=== PATIENT | male | born 1945 | race Caucasian/White ===

== ENCOUNTER 2018-01-31 07:20 | Outpatient (CLI) | payer OTHER | END 2018-01-31 07:24 | disposition home or self-care (01) | LOC: RAD 07:20 | DX: I51.5 Myocardial degeneration (principal); Z95.0 Presence of cardiac pacemaker; J44.9 Chronic obstructive pulmonary disease, unspecified; I11.9 Hypertensive heart disease without heart failure; I67.89 Other cerebrovascular disease; N40.0 Benign prostatic hyperplasia without lower urinary tract symptoms; E78.4 Other hyperlipidemia; Z12.11 Encounter for screening for malignant neoplasm of colon ==

== ENCOUNTER → 2018-03-28 06:35 | Outpatient (CLI) | payer OTHER | END | disposition home or self-care (01) | LOC: LAB 06:35 | DX: Z95.0 Presence of cardiac pacemaker (principal); E78.2 Mixed hyperlipidemia; I11.9 Hypertensive heart disease without heart failure; I65.29 Occlusion and stenosis of unspecified carotid artery ==

== ENCOUNTER 2019-02-16 07:25 | Outpatient (CLI) | payer OTHER | END 2019-02-16 07:26 | disposition home or self-care (01) | LOC: NUCLEAR 07:25 | DX: I73.9 Peripheral vascular disease, unspecified (principal) ==

== ENCOUNTER 2019-02-20 07:42 | Outpatient (CLI) | payer OTHER | END 2019-02-20 07:43 | disposition home or self-care (01) | LOC: NUCLEAR 07:42 | DX: I87.2 Venous insufficiency (chronic) (peripheral) (principal) ==

== ENCOUNTER 2019-06-18 06:46 | Outpatient (CLI) | payer OTHER | END 2019-06-18 06:52 | disposition home or self-care (01) | LOC: LAB 06:46 | DX: I11.9 Hypertensive heart disease without heart failure (principal); E78.2 Mixed hyperlipidemia; I63.89 Other cerebral infarction; I63.30 Cerebral infarction due to thrombosis of unspecified cerebral artery; I87.2 Venous insufficiency (chronic) (peripheral); Z95.0 Presence of cardiac pacemaker ==

== ENCOUNTER 2019-08-21 08:16 | Outpatient (CLI) | payer OTHER | END 2019-08-21 08:27 | disposition home or self-care (01) | LOC: LAB 08:16 | DX: R73.02 Impaired glucose tolerance (oral) (principal); E78.00 Pure hypercholesterolemia, unspecified; I10 Essential (primary) hypertension; E03.8 Other specified hypothyroidism; N40.0 Benign prostatic hyperplasia without lower urinary tract symptoms ==

== ENCOUNTER 2019-08-22 07:40 | Outpatient (CLI) | payer OTHER | END 2019-08-22 12:46 | disposition home or self-care (01) | LOC: SONOGRAMA 07:40 | DX: R31.29 Other microscopic hematuria (principal) ==

== ENCOUNTER → 2019-12-11 07:25 | Outpatient (CLI) | payer OTHER | END | disposition home or self-care (01) | LOC: LAB 07:25 | DX: Z95.0 Presence of cardiac pacemaker (principal); I11.9 Hypertensive heart disease without heart failure; I63.89 Other cerebral infarction; I73.89 Other specified peripheral vascular diseases ==

== ENCOUNTER 2019-12-24 07:26 | Outpatient (CLI) | payer OTHER | END 2019-12-24 07:32 | disposition home or self-care (01) | LOC: LAB 07:26 | PROVIDERS: ATTEND Internal Medicine | DX: I10 Essential (primary) hypertension (principal); E78.49 Other hyperlipidemia; D64.89 Other specified anemias ==

== ENCOUNTER 2020-03-24 07:58 | Outpatient (CLI) | payer OTHER | END 2020-03-24 15:00 | disposition home or self-care (01) | LOC: LAB 07:58 | PROVIDERS: ATTEND Internal Medicine | DX: D64.89 Other specified anemias (principal); R73.02 Impaired glucose tolerance (oral); E78.49 Other hyperlipidemia; I10 Essential (primary) hypertension ==

== ENCOUNTER 2020-04-21 07:37 | Outpatient (CLI) | payer OTHER | END 2020-04-21 07:53 | disposition home or self-care (01) | LOC: NUCLEAR 07:37 | PROVIDERS: ATTEND Internal Medicine | DX: I87.2 Venous insufficiency (chronic) (peripheral) (principal); M79.604 Pain in right leg ==

== ENCOUNTER 2020-06-27 07:42 | Outpatient (CLI) | payer OTHER | END 2020-06-27 07:56 | disposition home or self-care (01) | LOC: LAB 07:42 | PROVIDERS: ATTEND Internal Medicine | DX: D64.89 Other specified anemias (principal); I10 Essential (primary) hypertension; E78.49 Other hyperlipidemia; J44.9 Chronic obstructive pulmonary disease, unspecified; R73.02 Impaired glucose tolerance (oral) ==

== ENCOUNTER 2020-09-03 07:34 | Outpatient (CLI) | payer OTHER | END 2020-09-03 07:42 | disposition home or self-care (01) | LOC: LAB 07:34 | DX: D68.8 Other specified coagulation defects (principal); E78.49 Other hyperlipidemia ==

== ENCOUNTER → 2021-04-15 08:23 | Outpatient (CLI) | payer OTHER | END | disposition home or self-care (01) | LOC: LAB 08:23 | PROVIDERS: ATTEND Internal Medicine | DX: D64.89 Other specified anemias (principal); I10 Essential (primary) hypertension; E78.49 Other hyperlipidemia; R73.02 Impaired glucose tolerance (oral) ==

== ENCOUNTER 2021-04-21 08:01 | Outpatient (CLI) | payer OTHER | END 2021-04-21 08:13 | disposition home or self-care (01) | LOC: RAD 08:01 | PROVIDERS: ATTEND Internal Medicine | DX: M25.551 Pain in right hip (principal) ==

== ENCOUNTER 2021-05-16 03:15 | Emergency (ER) | payer OTHER ==
[~2021-05-16] VITALS: Ht 182.9 cm; Wt 105.2 kg
[2021-05-16] MEDS ORDERED: NORVASC5 MG (04:07)
[2021-05-16] MEDS ORDERED: PLAVIX75 MG (04:07)
== END 2021-05-16 13:58 | disposition home or self-care (01) ==
LOC: ER 03:15
DX: R10.31 Right lower quadrant pain (principal); R42 Dizziness and giddiness

== ENCOUNTER 2021-05-20 07:24 | Outpatient (CLI) | payer OTHER ==
[~2021-05-20 07:24] MED LIST: NORVASC5 MG; PLAVIX75 MG
== END 2021-05-20 07:29 | disposition home or self-care (01) ==
LOC: TOM 07:24
PROVIDERS: ATTEND Internal Medicine
DX: M25.551 Pain in right hip (principal)

== ENCOUNTER 2021-06-11 12:33 | Outpatient (CLI) | payer OTHER | END 2021-06-11 12:34 | disposition home or self-care (01) | LOC: NUCLEAR 12:33 | PROVIDERS: ATTEND Orthopaedic Surgery | DX: M81.0 Age-related osteoporosis without current pathological fracture (principal) ==

== ENCOUNTER 2021-07-13 07:57 | Outpatient (CLI) | payer OTHER | END 2021-07-13 07:58 | disposition home or self-care (01) | LOC: LAB 07:57 | PROVIDERS: ATTEND Orthopaedic Surgery | DX: E55.9 Vitamin D deficiency, unspecified (principal); E88.89 Other specified metabolic disorders; M85.9 Disorder of bone density and structure, unspecified; E21.3 Hyperparathyroidism, unspecified; M81.8 Other osteoporosis without current pathological fracture; E56.1 Deficiency of vitamin K ==

== ENCOUNTER → 2021-07-28 07:55 | Outpatient (CLI) | payer OTHER | END | disposition home or self-care (01) | LOC: LAB 07:55 | PROVIDERS: ATTEND Internal Medicine | DX: D64.89 Other specified anemias (principal); R73.02 Impaired glucose tolerance (oral); I10 Essential (primary) hypertension; E78.49 Other hyperlipidemia; Z12.11 Encounter for screening for malignant neoplasm of colon ==

== ENCOUNTER 2021-07-29 07:02 | Outpatient (CLI) | payer OTHER | END 2021-07-29 07:04 | disposition home or self-care (01) | LOC: LAB 07:02 | PROVIDERS: ATTEND Internal Medicine | DX: R73.02 Impaired glucose tolerance (oral) (principal); I10 Essential (primary) hypertension; E78.49 Other hyperlipidemia; Z12.11 Encounter for screening for malignant neoplasm of colon ==

== ENCOUNTER → 2021-11-16 09:54 | Outpatient (CLI) | payer OTHER | END | disposition home or self-care (01) | LOC: LAB 09:54 | PROVIDERS: ATTEND Specialist | DX: J44.9 Chronic obstructive pulmonary disease, unspecified (principal) ==

== ENCOUNTER 2021-12-03 07:16 | Outpatient (CLI) | payer OTHER | END 2021-12-03 07:17 | disposition home or self-care (01) | LOC: LAB 07:16 | PROVIDERS: ATTEND Internal Medicine | DX: R73.02 Impaired glucose tolerance (oral) (principal); E78.5 Hyperlipidemia, unspecified; D64.9 Anemia, unspecified; N40.1 Benign prostatic hyperplasia with lower urinary tract symptoms; I11.0 Hypertensive heart disease with heart failure ==

== ENCOUNTER 2022-01-18 06:15 | Outpatient (CLI) | payer OTHER | END 2022-01-18 06:16 | disposition home or self-care (01) | LOC: LAB 06:15 | PROVIDERS: ATTEND Orthopaedic Surgery | DX: E55.9 Vitamin D deficiency, unspecified (principal); M85.9 Disorder of bone density and structure, unspecified; E21.3 Hyperparathyroidism, unspecified; M81.8 Other osteoporosis without current pathological fracture ==

== ENCOUNTER 2022-03-08 07:26 | Outpatient (CLI) | payer OTHER | END 2022-03-08 07:28 | disposition home or self-care (01) | LOC: LAB 07:26 | PROVIDERS: ATTEND Internal Medicine | DX: D69.6 Thrombocytopenia, unspecified (principal); I10 Essential (primary) hypertension; R73.02 Impaired glucose tolerance (oral); E78.5 Hyperlipidemia, unspecified ==

== ENCOUNTER 2022-06-22 08:02 | Outpatient (CLI) | payer OTHER | END 2022-06-22 08:11 | disposition home or self-care (01) | LOC: LAB 08:02 | PROVIDERS: ATTEND Internal Medicine | DX: R73.02 Impaired glucose tolerance (oral) (principal); I11.9 Hypertensive heart disease without heart failure; E78.5 Hyperlipidemia, unspecified; D64.9 Anemia, unspecified ==

== ENCOUNTER 2022-07-20 12:56 | Outpatient (CLI) | payer OTHER | END 2022-07-20 12:58 | disposition home or self-care (01) | LOC: NUCLEAR 12:56 | PROVIDERS: ATTEND Orthopaedic Surgery | DX: M81.0 Age-related osteoporosis without current pathological fracture (principal) ==

== ENCOUNTER 2022-08-31 06:36 | Outpatient (CLI) | payer OTHER | END 2022-08-31 06:56 | disposition home or self-care (01) | LOC: LAB 06:36 | PROVIDERS: ATTEND Orthopaedic Surgery | DX: E55.9 Vitamin D deficiency, unspecified (principal); M85.9 Disorder of bone density and structure, unspecified; E56.1 Deficiency of vitamin K ==

== ENCOUNTER 2023-01-04 06:34 | Outpatient (CLI) | payer OTHER | END 2023-01-04 06:38 | disposition home or self-care (01) | LOC: LAB 06:34 | PROVIDERS: ATTEND Internal Medicine | DX: R73.02 Impaired glucose tolerance (oral) (principal); E78.5 Hyperlipidemia, unspecified; I11.9 Hypertensive heart disease without heart failure; D64.9 Anemia, unspecified; N40.0 Benign prostatic hyperplasia without lower urinary tract symptoms; Z12.11 Encounter for screening for malignant neoplasm of colon ==

== ENCOUNTER 2023-01-06 08:06 | Outpatient (CLI) | payer OTHER | END 2023-01-06 08:07 | disposition home or self-care (01) | LOC: LAB 08:06 | PROVIDERS: ATTEND Internal Medicine | DX: Z12.11 Encounter for screening for malignant neoplasm of colon (principal) ==

== ENCOUNTER 2023-02-17 13:40 | Inpatient (IN) | payer OTHER ==
[~2023-02-17] VITALS: Ht 182.9 cm; Wt 102.1 kg
[2023-02-17] MEDS ORDERED: ALENDRONATE SOD70 MG (13:54)
[2023-02-17] MEDS ORDERED: FLONASE16 GM (13:54)
[2023-02-17] MEDS ORDERED: VITAMIN D3125 MC1 (13:54)
--- NOTE | 2023-02-17 14:02 | NUR ---
PTE ALERTA Y ORIENTADO POR NOAH ESFERAS [place] EN FRASES, REFIERE QUE DESDE LA MADRUGADA TIENE DOLOR DE PECHO Y SOB, ATIF DIXON ESTADO EMPEORANDO. SE OBSERVA PIERNAS HINCHADAS, PTE CON HX DE [place] EN EL 2015. SE REALIZA EKG Y SE PRESENTA A , EL MISMO REFIERE HUBICARLO EN AREA DE CHEST PAIN
--- NOTE | 2023-02-17 14:46 | NUR ---
SE RECIBE PTE MASCULINO ALERTA Y ORINETADO X3 EN AREA DE CHEST PAIN, SE CONECTA A MONITOR CARDIACO Y OXIMETRIA DE PULSO. SE CANALIZA PACIENTE CON ANGIO !8 EN MANO DERECHA AMBAS CANALIZACIONES PATENTES Y LIBRES DE EDEMAS Y ERITEMAS, SE LE EDUCA PACIENTE SOBRE PROCESO A SEGUIR EN EL AREA EL MISMO ENTIENDE, SE KYLAH PACIENTE EN GALINDO CON BARANDAS ELEVADAS. VITALES DOCUMENTADOS EN SISTEMA.
--- NOTE | 2023-02-17 15:14 | NUR ---
SE RECIBE PACIENTE DEL TURNO ANTERIOR ALERTA Y ORIENTADO X 3 EN CAMA #17 CON BARRANDAS ELEVADAS. CONECTADO A MONITOR CARDIACO BP: 143/78, P: 74, RR:24, SPO2: 95 CON CANULA NASALA A 2 LITROS. ABDOMEN BLANDO AL TACTO Y ORIENADO EAPONTANEO PACIENTE EN ESPERA DE EVALUACION MEDICA. SE MANTIENE EN OBSERVACION.
--- NOTE | 2023-02-17 15:37 | NUR ---
SE LE LUCIANA MUESTRAS DE LAB POR ORDEN MEDICA SE LUCIANA MEDIDAS ASEPTICA. SE NOTIFICA PLACA PORTABLE A PERSONA DENISE X.
== END 2023-02-24 17:19 | disposition home or self-care (01) | DRG 194 ==
LOC: ER 13:40 → MEDI 19:17
PROVIDERS: ADMIT Internal Medicine; ATTEND Internal Medicine
PROC: BW24YZZ Computerized Tomography (CT Scan) of Chest and Abdomen using Other Contrast (ICD-10-PCS; principal; 2023-02-17)
DX: J18.9 Pneumonia, unspecified organism (principal); J44.1 Chronic obstructive pulmonary disease with (acute) exacerbation; Z99.81 Dependence on supplemental oxygen; Z20.822 Contact with and (suspected) exposure to COVID-19; I11.0 Hypertensive heart disease with heart failure; I50.9 Heart failure, unspecified; I49.5 Sick sinus syndrome; Z95.0 Presence of cardiac pacemaker; I25.10 Atherosclerotic heart disease of native coronary artery without angina pectoris

== ENCOUNTER → 2023-03-29 07:37 | Outpatient (CLI) | payer OTHER ==
[~2023-03-29 07:37] MED LIST changes: +ALENDRONATE SOD70 MG; +FLONASE16 GM; +VITAMIN D3125 MC1
== END | disposition home or self-care (01) ==
LOC: LAB 07:37
PROVIDERS: ATTEND Internal Medicine
DX: R73.02 Impaired glucose tolerance (oral) (principal); I10 Essential (primary) hypertension; E78.00 Pure hypercholesterolemia, unspecified; D64.9 Anemia, unspecified; N40.0 Benign prostatic hyperplasia without lower urinary tract symptoms

== ENCOUNTER → 2023-06-20 06:30 | Outpatient (CLI) | payer OTHER ==
[2023-06-20 07:59] LABS: HEMATOCRIT 42.9 % (39.0-48.0); MEAN CORPUSCULAR HEMOGLOBIN 31.9 pg (27.00-32.0); MEAN CORPUSCULAR HGB CONC 32.6 g/dl (32.0-36.0); PLATELET COUNT 141 K/uL (150-450); RED BLOOD COUNT 4.38 M/uL (4.00-6.00); RED CELL DISTRIBUTION WIDTH 14.8 % (11.5-14.5)
[2023-06-20 08:41] LABS: ALBUMIN 3.4 gm/dL (3.4-5.0); BILIRUBIN TOTAL 0.56 mg/dL (0.3-1.2); BILIRUBIN,CONJUGATED 0.15 mg/dL (0.0-0.2); BILIRUBIN,UNCONJUGATED 0.41 mg/dL (0.0-0.6); CALCIUM 8.9 mg/dL (8.5-10.1); CHOL HDL RATIO 3.5 (0-5.0); CREATININE SERUM 1.1 mg/dL (0.70-1.30); GFR 64.57; POTASSIUM 4.64 mEq/L (3.5-5.1); TOTAL PROTEIN 6.9 gm/dL (6.4-8.2)
== END | disposition home or self-care (01) ==
LOC: LAB 06:30
PROVIDERS: ATTEND Internal Medicine
DX: I11.0 Hypertensive heart disease with heart failure (principal); E78.5 Hyperlipidemia, unspecified; R73.02 Impaired glucose tolerance (oral); Z12.11 Encounter for screening for malignant neoplasm of colon; R74.01 Elevation of levels of liver transaminase levels

== ENCOUNTER 2023-06-24 06:28 | Outpatient (CLI) | payer OTHER ==
[2023-06-24 08:48] LABS: ob NEGATIVE (NEGATIVE)
== END 2023-06-24 06:29 | disposition home or self-care (01) ==
LOC: LAB 06:28
PROVIDERS: ATTEND Internal Medicine
DX: I11.0 Hypertensive heart disease with heart failure (principal); E78.5 Hyperlipidemia, unspecified; R73.02 Impaired glucose tolerance (oral); Z12.11 Encounter for screening for malignant neoplasm of colon; R74.01 Elevation of levels of liver transaminase levels

== ENCOUNTER 2023-07-24 10:40 | Emergency (ER) | payer OTHER ==
[~2023-07-24] VITALS: Ht 167.6 cm; Wt 72.6 kg
[2023-07-24 14:02] LABS: URINE APPEARANCE Cloudy; URINE BILIRRUBIN Moderate (NEGATIVE); URINE BLOOD Moderate; URINE COLOR Dark Yellow; URINE GLUCOSE Negative (NEGATIVE); URINE LEUKOCYTE Trace; URINE NITRATE Negative
[2023-07-24 14:06] LABS: URINE BACTERIA 113.3 uL (0.0-1933); URINE EPITHELIAL CELLS 38.9 uL (0.0-38.8); URINE RBC 61.6 uL (0.0-20.8); URINE WBC 6.1 uL (0.0-23.2)
[2023-07-24 14:06] LABS: ALBUMIN 2.7 gm/dL (3.4-5.0); BILIRUBIN TOTAL 0.83 mg/dL (0.3-1.2); BILIRUBIN,CONJUGATED 0.33 mg/dL (0.0-0.2); BILIRUBIN,UNCONJUGATED 0.5 mg/dL (0.0-0.6); CALCIUM 7.9 mg/dL (8.5-10.1); CREATININE SERUM 1.39 mg/dL (0.70-1.30); GFR 49.29; POTASSIUM 4.05 mEq/L (3.5-5.1); TOTAL PROTEIN 6.5 gm/dL (6.4-8.2)
[2023-07-24 14:21] LABS: URINE PROTEIN 100 (NEGATIVE)
[2023-07-24 15:15] LABS: HEMATOCRIT 40.2 % (39.0-48.0); HEMOGLOBIN 13.5 g/dL (13-16.00); MEAN CELL VOLUME 96.1 fL (80.0-100.00); MEAN CORPUSCULAR HEMOGLOBIN 32.3 pg (27.00-32.0); MEAN CORPUSCULAR HGB CONC 33.6 g/dl (32.0-36.0); PLATELET COUNT 141 K/uL (150-450); RED BLOOD COUNT 4.19 M/uL (4.00-6.00); RED CELL DISTRIBUTION WIDTH 15.1 % (11.5-14.5)
== END 2023-07-24 22:23 | disposition home or self-care (01) ==
LOC: ER 10:40
PROVIDERS: General Practice
DX: A09 Infectious gastroenteritis and colitis, unspecified (principal); R50.9 Fever, unspecified; Z20.822 Contact with and (suspected) exposure to COVID-19
CPT/HCPCS: 71045; 96365; 96366; 99283; J2930; J3490; J7030

== ENCOUNTER 2023-07-29 09:10 | Outpatient (CLI) | payer OTHER | END 2023-07-29 09:11 | disposition home or self-care (01) | LOC: NUCLEAR 09:10 | PROVIDERS: ATTEND Orthopaedic Surgery | DX: M81.0 Age-related osteoporosis without current pathological fracture (principal) ==

== ENCOUNTER → 2023-08-23 06:34 | Outpatient (CLI) | payer OTHER | END | disposition home or self-care (01) | LOC: LAB 06:34 | PROVIDERS: ATTEND Orthopaedic Surgery | DX: E55.9 Vitamin D deficiency, unspecified (principal); M85.9 Disorder of bone density and structure, unspecified; E56.1 Deficiency of vitamin K ==

== ENCOUNTER 2023-08-30 12:52 | Outpatient (CLI) | payer OTHER | END 2023-08-30 12:55 | disposition home or self-care (01) | LOC: NUCLEAR 12:52 | PROVIDERS: ATTEND Orthopaedic Surgery | DX: M81.0 Age-related osteoporosis without current pathological fracture (principal) ==

== ENCOUNTER 2023-10-06 06:21 | Outpatient (CLI) | payer OTHER ==
[2023-10-06 07:21] LABS: HEMATOCRIT 41.6 % (39.0-48.0); MEAN CELL VOLUME 95.8 fL (80.0-100.00); MEAN CORPUSCULAR HEMOGLOBIN 32.3 pg (27.00-32.0); MEAN CORPUSCULAR HGB CONC 33.7 g/dl (32.0-36.0); PLATELET COUNT 175 K/uL (150-450); RED BLOOD COUNT 4.34 M/uL (4.00-6.00)
[2023-10-06 07:30] LABS: URINE APPEARANCE Clear; URINE BILIRRUBIN Negative (NEGATIVE); URINE BLOOD Small; URINE COLOR Yellow; URINE GLUCOSE Negative (NEGATIVE); URINE LEUKOCYTE Negative; URINE NITRATE Negative; URINE PROTEIN Negative (NEGATIVE); URINE UROBILINOGEN 0.2 E.U./dl
[2023-10-06 07:34] LABS: URINE BACTERIA 15.1 uL (0.0-1933); URINE EPITHELIAL CELLS 2.3 uL (0.0-38.8); URINE RBC 16.9 uL (0.0-20.8); URINE WBC 2.4 uL (0.0-23.2)
[2023-10-06 08:00] LABS: ALBUMIN 3.3 gm/dL (3.4-5.0); BILIRUBIN TOTAL 0.44 mg/dL (0.3-1.2); CALCIUM 8.6 mg/dL (8.5-10.1); CHOL HDL RATIO 3.3 (0-5.0); CREATININE SERUM 1.19 mg/dL (0.70-1.30); GFR 58.97; GLOBULINA 3.6 G/DL (2.4-3.5); POTASSIUM 4.32 mEq/L (3.5-5.1); TOTAL PROTEIN 6.9 gm/dL (6.4-8.2)
== END 2023-10-06 06:22 | disposition home or self-care (01) ==
LOC: LAB 06:21
PROVIDERS: ATTEND Internal Medicine
DX: R73.03 Prediabetes (principal); I11.0 Hypertensive heart disease with heart failure; E78.5 Hyperlipidemia, unspecified; J44.9 Chronic obstructive pulmonary disease, unspecified

== ENCOUNTER 2023-10-17 07:02 | Outpatient (CLI) | payer OTHER | END 2023-10-17 07:06 | disposition home or self-care (01) | LOC: RAD 07:02 | PROVIDERS: ATTEND Specialist | DX: J44.9 Chronic obstructive pulmonary disease, unspecified (principal) ==

== ENCOUNTER 2023-10-26 06:03 | Outpatient (CLI) | payer OTHER ==
[2023-10-26 07:12] LABS: URINE APPEARANCE Clear; URINE BILIRRUBIN Negative (NEGATIVE); URINE BLOOD Moderate; URINE COLOR Yellow; URINE GLUCOSE Negative (NEGATIVE); URINE LEUKOCYTE Negative; URINE NITRATE Negative; URINE PROTEIN Negative (NEGATIVE)
[2023-10-26 07:16] LABS: URINE BACTERIA 18.8 uL (0.0-1933); URINE EPITHELIAL CELLS 4.4 uL (0.0-38.8); URINE RBC 40.3 uL (0.0-20.8); URINE WBC 3.8 uL (0.0-23.2)
[2023-10-26 07:38] LABS: HEMATOCRIT 41.9 % (39.0-48.0); HEMOGLOBIN 14.2 g/dL (13-16.00); MEAN CELL VOLUME 97.6 fL (80.0-100.00); MEAN CORPUSCULAR HEMOGLOBIN 33.2 pg (27.00-32.0); RED BLOOD COUNT 4.29 M/uL (4.00-6.00); RED CELL DISTRIBUTION WIDTH 15.3 % (11.5-14.5)
[2023-10-26 07:51] LABS: PLATELET COUNT 138 K/uL (150-450)
[2023-10-26 08:09] LABS: ALBUMIN 3.5 gm/dL (3.4-5.0); BILIRUBIN TOTAL 0.55 mg/dL (0.3-1.2); BILIRUBIN,CONJUGATED 0.16 mg/dL (0.0-0.2); BILIRUBIN,UNCONJUGATED 0.39 mg/dL (0.0-0.6); CALCIUM 8.6 mg/dL (8.5-10.1); CHOL HDL RATIO 2.7 (0-5.0); CREATININE SERUM 1.29 mg/dL (0.70-1.30); GFR 53.73; POTASSIUM 4.65 mEq/L (3.5-5.1); TOTAL PROTEIN 6.9 gm/dL (6.4-8.2)
== END 2023-10-26 06:04 | disposition home or self-care (01) ==
LOC: LAB 06:03
PROVIDERS: ATTEND Internal Medicine
DX: I10 Essential (primary) hypertension (principal); E78.5 Hyperlipidemia, unspecified; R74.01 Elevation of levels of liver transaminase levels; R73.02 Impaired glucose tolerance (oral); D64.9 Anemia, unspecified; M81.0 Age-related osteoporosis without current pathological fracture; E55.9 Vitamin D deficiency, unspecified

== ENCOUNTER → 2024-03-28 06:15 | Outpatient (CLI) | payer OTHER ==
[2024-03-28 07:12] LABS: HEMATOCRIT 42.6 % (39.0-48.0); HEMOGLOBIN 14.1 g/dL (13-16.00); MEAN CELL VOLUME 98.7 fL (80.0-100.00); MEAN CORPUSCULAR HEMOGLOBIN 32.6 pg (27.00-32.0); MEAN CORPUSCULAR HGB CONC 33.1 g/dl (32.0-36.0); PLATELET COUNT 196 K/uL (150-450); RED BLOOD COUNT 4.31 M/uL (4.00-6.00); RED CELL DISTRIBUTION WIDTH 15.2 % (11.5-14.5)
[2024-03-28 07:31] LABS: PH,URINE 5.5 (5.0-8.0); URINE APPEARANCE Clear; URINE BILIRRUBIN Negative (NEGATIVE); URINE BLOOD Small; URINE COLOR Yellow; URINE GLUCOSE Negative (NEGATIVE); URINE KETONE Trace (NEGATIVE); URINE LEUKOCYTE Negative; URINE NITRATE Negative; URINE PROTEIN Trace (NEGATIVE)
[2024-03-28 07:34] LABS: URINE BACTERIA 16.3 uL (0.0-1933); URINE EPITHELIAL CELLS 3.5 uL (0.0-38.8); URINE RBC 23.6 uL (0.0-20.8)
[2024-03-28 08:08] LABS: ALBUMIN 3.4 gm/dL (3.4-5.0); BILIRUBIN TOTAL 0.73 mg/dL (0.3-1.2); CALCIUM 8.6 mg/dL (8.5-10.1); CHOL HDL RATIO 2.8 (0-5.0); CREATININE SERUM 1.2 mg/dL (0.70-1.30); GFR 58.25; GLOBULINA 3.7 G/DL (2.4-3.5); POTASSIUM 4.95 mEq/L (3.5-5.1); PROSTATIC SPECIFIC ANTIGEN 2.33 NG/ML (0.010-4.00); TOTAL PROTEIN 7.1 gm/dL (6.4-8.2)
== END | disposition home or self-care (01) ==
LOC: LAB 06:15
PROVIDERS: ATTEND Internal Medicine
DX: D69.6 Thrombocytopenia, unspecified (principal); E78.5 Hyperlipidemia, unspecified; N40.1 Benign prostatic hyperplasia with lower urinary tract symptoms; I11.0 Hypertensive heart disease with heart failure; R73.02 Impaired glucose tolerance (oral)

== ENCOUNTER 2024-03-28 07:19 | Outpatient (CLI) | payer OTHER | END 2024-03-28 07:20 | disposition home or self-care (01) | LOC: RAD 07:19 | DX: J44.9 Chronic obstructive pulmonary disease, unspecified (principal) ==

== ENCOUNTER 2024-07-26 06:08 | Outpatient (CLI) | payer OTHER ==
[2024-07-26 07:30] LABS: HEMATOCRIT 43.1 % (39.0-48.0); HEMOGLOBIN 14.2 g/dL (13-16.00); MEAN CELL VOLUME 99.9 fL (80.0-100.00); MEAN CORPUSCULAR HEMOGLOBIN 32.8 pg (27.00-32.0); MEAN CORPUSCULAR HGB CONC 32.8 g/dl (32.0-36.0); PLATELET COUNT 141 K/uL (150-450); RED BLOOD COUNT 4.32 M/uL (4.00-6.00); RED CELL DISTRIBUTION WIDTH 14.6 % (11.5-14.5)
[2024-07-26 07:39] LABS: URINE APPEARANCE Clear; URINE BILIRRUBIN Negative (NEGATIVE); URINE BLOOD Small; URINE COLOR Dark Yellow; URINE GLUCOSE Negative (NEGATIVE); URINE KETONE Trace (NEGATIVE); URINE LEUKOCYTE Negative; URINE NITRATE Negative; URINE PROTEIN Trace (NEGATIVE)
[2024-07-26 07:43] LABS: URINE BACTERIA 6.1 uL (0.0-1933); URINE CAST 1.61 uL (0.0-1.40); URINE EPITHELIAL CELLS 7.9 uL (0.0-38.8); URINE RBC 33.8 uL (0.0-20.8)
[2024-07-26 08:42] LABS: CALCIUM 8.3 mg/dL (8.5-10.1); CHOL HDL RATIO 3.4 (0-5.0); CREATININE SERUM 1.11 mg/dL (0.70-1.30); GFR 63.74; MAGNESIUM 2.1 mg/dL (1.8-2.4); POTASSIUM 4.28 mEq/L (3.5-5.1)
== END 2024-07-26 06:15 | disposition home or self-care (01) ==
LOC: LAB 06:08
PROVIDERS: ATTEND Orthopaedic Surgery
DX: E55.9 Vitamin D deficiency, unspecified (principal); M85.9 Disorder of bone density and structure, unspecified; E56.1 Deficiency of vitamin K; E78.5 Hyperlipidemia, unspecified; I11.0 Hypertensive heart disease with heart failure; D69.6 Thrombocytopenia, unspecified; R73.02 Impaired glucose tolerance (oral); Z12.11 Encounter for screening for malignant neoplasm of colon

== ENCOUNTER → 2024-07-31 07:21 | Outpatient (CLI) | payer OTHER ==
[2024-07-31 08:55] LABS: ob NEGATIVE (NEGATIVE)
== END | disposition home or self-care (01) ==
LOC: LAB 07:21
PROVIDERS: ATTEND Internal Medicine
DX: E78.5 Hyperlipidemia, unspecified (principal); I11.0 Hypertensive heart disease with heart failure; D69.6 Thrombocytopenia, unspecified; R73.02 Impaired glucose tolerance (oral); Z12.11 Encounter for screening for malignant neoplasm of colon

== ENCOUNTER 2024-08-31 12:53 | Outpatient (CLI) | payer OTHER | END 2024-08-31 12:55 | disposition home or self-care (01) | LOC: NUCLEAR 12:53 | PROVIDERS: ATTEND Orthopaedic Surgery | DX: M81.0 Age-related osteoporosis without current pathological fracture (principal) ==

== ENCOUNTER → 2024-11-22 06:44 | Outpatient (CLI) | payer OTHER ==
[2024-11-22 07:25] LABS: HEMATOCRIT 43.4 % (39.0-48.0); HEMOGLOBIN 14.6 g/dL (13-16.00); MEAN CELL VOLUME 99.2 fL (80.0-100.00); MEAN CORPUSCULAR HEMOGLOBIN 33.4 pg (27.00-32.0); MEAN CORPUSCULAR HGB CONC 33.6 g/dl (32.0-36.0); PLATELET COUNT 148 K/uL (150-450); RED BLOOD COUNT 4.38 M/uL (4.00-6.00); RED CELL DISTRIBUTION WIDTH 14.9 % (11.5-14.5)
[2024-11-22 07:36] LABS: URINE APPEARANCE Clear; URINE BILIRRUBIN Negative (NEGATIVE); URINE BLOOD Moderate; URINE COLOR Dark Yellow; URINE GLUCOSE Negative (NEGATIVE); URINE KETONE Trace (NEGATIVE); URINE LEUKOCYTE Negative; URINE NITRATE Negative; URINE PROTEIN Trace (NEGATIVE)
[2024-11-22 07:40] LABS: URINE BACTERIA 19.5 uL (0.0-1933); URINE EPITHELIAL CELLS 5.5 uL (0.0-38.8); URINE RBC 41.9 uL (0.0-20.8); URINE WBC 3.4 uL (0.0-23.2)
[2024-11-22 07:54] LABS: CALCIUM 8.5 mg/dL (8.5-10.1); CREATININE SERUM 1.22 mg/dL (0.70-1.30); GFR 57.15; POTASSIUM 4.82 mEq/L (3.5-5.1)
[2024-11-22 09:27] LABS: PLATELET ESTIMATE NORMAL (NORMAL)
== END | disposition home or self-care (01) ==
LOC: LAB 06:44
PROVIDERS: ATTEND Internal Medicine
DX: R73.02 Impaired glucose tolerance (oral) (principal); I11.0 Hypertensive heart disease with heart failure; E78.5 Hyperlipidemia, unspecified; D69.6 Thrombocytopenia, unspecified; N40.0 Benign prostatic hyperplasia without lower urinary tract symptoms

== ENCOUNTER 2025-04-07 09:17 | Emergency (ER) | payer OTHER ==
[~2025-04-07] VITALS: Ht 182.9 cm; Wt 103.0 kg
[2025-04-07] MEDS ORDERED: TRELEGY ELLIPT1 EACH IH (09:25)
[2025-04-07] MEDS ORDERED: IPRATROPIU0.2 MG/1 M (09:26)
[2025-04-07] MEDS ORDERED: METHYLPREDNISOLONE SOD SUCC 40 MG VIAL IV ONE (09:45)
[2025-04-07] MEDS ORDERED: LEVALBUTEROL HCL 0.63 MG/3 ML SOLUTION IH ONE (09:45)
[2025-04-07] MEDS ORDERED: 0.9 % SODIUM CHLORIDE 1,000 ML IV SCH (09:45)
[2025-04-07] MEDS ORDERED: IPRATROPIUM BROMIDE 0.5 MG/2.5 ML AMPUL.NEB IH ONE (09:45)
[2025-04-07 10:31] LABS: BASO % 0.5 % (0.1-1.2); EOS # 0.08 (0.04-0.54); EOS % 0.7 % (0.7-7.0); LYMPH # 2.85 (1.18-3.74); LYMPH % 26.2 % (19.3-53.1); MEAN PLATELET VOLUME 10.00 fl (9.4-12.4); MONO # 0.81 (0.24-0.82); MONO % 7.5 % (4.7-12.5); NEUT # 7.01 (1.56-6.13); NEUT % 64.5 % (34.0-71.1); RED CELL DISTRIBUTION WIDTH 14.1 % (11.6-14.4)
[2025-04-07 11:13] LABS: COVID-19 AG NEGATIVE (NEGATIVE)
[2025-04-07 11:15] LABS: ABG PH 7.400 (7.35-7.45); ABG PO2 91.8 mmHg (80-100); BICARBONATE 25.3 mmol/l (23-25)
[2025-04-07 11:16] LABS: o2 32 %
[2025-04-07 11:18] LABS: ALT/SGPT 36.0 U/L (12-78); AST/SGOT 19.0 U/L (15-37); BILIRUBIN TOTAL 1.01 mg/dL (0.3-1.2); BUN CREA RATIO 16.0 (7.0-25.0); CREATININE SERUM 1.28 mg/dL (0.70-1.30); GFR 53.94; GLOBULINA 3.3 G/DL (2.4-3.5); GLUCOSE FASTING 97.0 mg/dL (65-100); OSMOLALITY SERUM 291.0 MOSM/KG (275-295)
== END 2025-04-07 16:28 | disposition home or self-care (01) ==
LOC: ER 09:17
PROVIDERS: Emergency Medicine
DX: J44.9 Chronic obstructive pulmonary disease, unspecified (principal); Z20.822 Contact with and (suspected) exposure to COVID-19
CPT/HCPCS: 36415; 82803; 93005; 94640; 96365; 99284; J3490

== ENCOUNTER → 2025-04-09 06:07 | Outpatient (CLI) | payer OTHER ==
[~2025-04-09 06:07] MED LIST changes: +IPRATROPIU0.2 MG/1 M; +TRELEGY ELLIPT1 EACH IH
[2025-04-09 07:12] LABS: BASO % 0.5 % (0.1-1.2); EOS # 0.09 (0.04-0.54); EOS % 0.8 % (0.7-7.0); LYMPH # 3.84 (1.18-3.74); LYMPH % 34.1 % (19.3-53.1); MEAN PLATELET VOLUME 9.80 fl (9.4-12.4); MONO # 0.88 (0.24-0.82); MONO % 7.8 % (4.7-12.5); NEUT # 6.34 (1.56-6.13); NEUT % 56.3 % (34.0-71.1); RED CELL DISTRIBUTION WIDTH 14.5 % (11.6-14.4)
[2025-04-09 07:22] LABS: URINE APPEARANCE Clear; URINE BILIRRUBIN Negative (NEGATIVE); URINE BLOOD Small; URINE COLOR Yellow; URINE GLUCOSE Negative (NEGATIVE); URINE KETONE Trace (NEGATIVE); URINE LEUKOCYTE Negative; URINE NITRATE Negative; URINE PROTEIN Negative (NEGATIVE); URINE UROBILINOGEN 0.2 E.U./dl
[2025-04-09 07:25] LABS: URINE BACTERIA 9.5 uL (0.0-1933); URINE EPITHELIAL CELLS 3.8 uL (0.0-38.8); URINE RBC 12.7 uL (0.0-20.8); URINE WBC 2.4 uL (0.0-23.2)
[2025-04-09 07:31] LABS: URINE CAST 0.29 uL (0.0-1.40)
[2025-04-09 07:54] LABS: ALT/SGPT 34.0 U/L (12-78); AST/SGOT 17.0 U/L (15-37); BILIRUBIN TOTAL 0.69 mg/dL (0.3-1.2); BUN CREA RATIO 30.0 (7.0-25.0); CHOL HDL RATIO 2.6 (0-5.0); CREATININE SERUM 1.31 mg/dL (0.70-1.30); GFR 52.51; GLOBULINA 3.1 G/DL (2.4-3.5); GLUCOSE FASTING 88.0 mg/dL (65-100); HDL 52.0 mg/dl (40-60); LDL 68.0 mg/dl (0-130); OSMOLALITY SERUM 296.0 MOSM/KG (275-295); VLDL 13.0 (0-39)
== END | disposition home or self-care (01) ==
LOC: LAB 06:07
DX: R73.02 Impaired glucose tolerance (oral) (principal); I11.9 Hypertensive heart disease without heart failure; E78.5 Hyperlipidemia, unspecified; D64.9 Anemia, unspecified